=== PATIENT | female | born 1935 | race Caucasian/White ===

== ENCOUNTER 2022-03-05 11:18 | Emergency (ER) | payer OTHER ==
[~2022-03-05] VITALS: Ht 147.3 cm; Wt 63.5 kg
[2022-03-05 12:21] LABS: BASOPHILS % (AUTO) 0.5 % (0.0-2.0); EOSINOPHILS % (AUTO) 0.7 % (0.0-6.0); HEMATOCRIT 40 % (33-45); HEMOGLOBIN 13.2 g/dL (11.5-14.8); LYMPHOCYTES # (AUTO) 2.4 K/uL (0.8-4.8); LYMPHOCYTES % (AUTO) 34.7 % (20.0-44.0); MEAN CORPUSCULAR HGB CONC 33 g/dl (31.0-36.0); MEAN CORPUSCULAR VOLUME 97 fL (82-100); MONOCYTES # (AUTO) 0.6 K/uL (0.1-1.30); NEUTROPHILS # (AUTO) 3.8 K/uL (1.8-8.9); NEUTROPHILS % (AUTO) 55.1 % (43.0-81.0); PLATELET COUNT (AUTO) 153 K/uL (150-450); RED BLOOD CELL COUNT(AUTO) 4.12 MIL/uL (4.0-5.2)
[2022-03-05 12:30] LABS: CALCIUM, SERUM 9.2 mg/dL (8.5-10.1); CARBON DIOXIDE 26 mmol/L (21-32); CHLORIDE 103 mmol/L (98-107); GLUCOSE 112 mg/dL (74-106); POTASSIUM 4.3 mmol/L (3.5-5.1); SODIUM SERUM 138 mmol/L (136-145); UREA NITROGEN, BLOOD 24 mg/dL (7-18)
--- NOTE | 2022-03-05 13:03 | NUR ---
IV removed. Catheter intact and site benign. Pressure and 4x4 applied to site. No bleeding noted.Patient discharged to home in stable condition. Written and verbal after care instructions given. Patient verbalizes understanding of instruction.
--- NOTE | 2022-03-05 13:12 | NUR ---
Patient discharged to home in stable condition. Written and verbal after care instructions given. Patient verbalizes understanding of instruction.
[2022-03-05 13:13] VITALS: BP 148/78
== END 2022-03-05 13:13 | disposition home or self-care (01) ==
LOC: ER 11:20
DX: R55 Syncope and collapse (principal); I10 Essential (primary) hypertension; E78.00 Pure hypercholesterolemia, unspecified; Z88.2 Allergy status to sulfonamides; Z88.8 Allergy status to other drugs, medicaments and biological substances
CPT/HCPCS: 36415; 71045-TC; 80048-TC; 84484-TC; 85025-TC

== ENCOUNTER 2022-03-05 14:47 | Emergency (ER) | payer OTHER ==
[~2022-03-05] VITALS: Ht 165.1 cm; Wt 61.2 kg
--- NOTE | 2022-03-05 14:56 | NUR ---
MICHELLE HERRERA From Home "Recent discharge from here was sitting with sons fainted again- witnessed [id number]". PLACED ON BED, AAOX4, BREATHING EVEN AND UNLABORED.
--- NOTE | 2022-03-05 15:04 | NUR ---
CALLED [facility] [phone]
--- NOTE | 2022-03-05 15:05 | NUR ---
RECEIVED PT 86YRS FEMALE CAME FROM HOME BY PRAMIDIC C/O SYNCOPY WHEN SITTING WITH SONE AT HOME PT AWAKE AND ALERT RESPIRATION SPONT EASY
--- NOTE | 2022-03-05 16:30 | NUR ---
RADHA CAMARGO SENT TO LAB
--- NOTE | 2022-03-05 17:45 | NUR ---
Juanito lopez in [facility] - 03/05/22 at 1914 by ANASTASIYA completed procedure ( paracettesis ) output 5000ml yellow clor no blood
--- NOTE | 2022-03-05 18:12 | NUR ---
abdomin soft none tender to touch
--- NOTE | 2022-03-05 19:14 | NUR ---
AMBULTE TO BR VIA W/C NO COMPLAIN NO SYNCOPY WATING FOR ROOM IN [facility]
--- NOTE | 2022-03-05 19:21 | NUR ---
HAND OFF TO AXEL VAIL
--- NOTE | 2022-03-05 19:45 | NUR ---
SEEN PATIENT AAOX4 AT BEDSIDE. WAITING TO BE TRANSFERRED TO [facility]. PER PATIENT, SHE FEELS MUCH BETTER NOW AND READY TO GO. EXPLAINED TO PATIENT THAT WE ARE STILL WAITING FOR [facility] TO GIVE US A ROOM SO WE CAN TRANSFER HER. PATIENT HAS IV CANNULA ON LEFT WRIST G20. VITALS CHECKED AND BEING MONITORED
--- NOTE | 2022-03-05 20:11 | NUR ---
PT IS ACCEPTED [facility] UNDER THE CARE OF Adelina RAMIREZ. PT IS GPOING TO ROOM 4102-A VIA [facility], [facility] [employer] [facility] @ [phone] CALL [phone] FOR REPORT
--- NOTE | 2022-03-05 20:43 | NUR ---
REPORT GIVEN TO GENNA HENDRICKS OF [facility].
--- NOTE | 2022-03-05 21:52 | NUR ---
[facility] AT BEDSIDE FOR TRANSPORT TO [facility].
[2022-03-05 23:53] VITALS: BP 152/73
== END 2022-03-05 23:00 | disposition short-term general hospital (02) ==
LOC: ER 14:49
DX: R55 Syncope and collapse (principal); Z20.822 Contact with and (suspected) exposure to COVID-19; I10 Essential (primary) hypertension
CPT/HCPCS: 99285; 70450; 87426; C9803